=== PATIENT | female | born 2000 | race African-American/Black ===

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

== ENCOUNTER 2019-09-11 09:51 | Emergency (ER) | payer OTHER, MEDICAID ==
[2019-09-11 09:56] VITALS: BP 123/78
[2019-09-11] MEDS ORDERED: NORMAL SALINE 1000 ML 1,000 ML IV ONE (10:23)
[2019-09-11] MEDS ORDERED: METOCLOPRAMIDE HCL INJ/PF 10 MG/2 ML SDV IV ONE (10:24)
--- NOTE | 2019-09-11 10:26 | ER Document Report ---
ED Medical Screen (RME) - General Chief Complaint: Abdominal Pain Stated Complaint: NAUSEA/VOMITING Time Seen by Provider: 09/11/19 10:18 Primary Care Provider: SHERRY DOYLE FNP [Primary Care Provider] - Follow up as needed Notes: Patient is a 19-year-old female who presents emergency department with a chief complaint of nausea, vomiting since Wednesday. Patient reports she does not have any sick contacts and has not had a fever. Denies urinary symptoms. Patient reports her last menstrual cycle was 2 months ago and she was seen at a hospital last Wednesday and was told she was , about 8-10 weeks. Patient reports she has not seen a doctor or received an ultrasound. Patient reports that she is attempted to take Pepto, Tylenol and milk of mag but was unable to keep these down due to the vomiting. Patient reports she is not having diarrhea. Patient reports that her lower abdomen feels "upset." Patient reports she is having increased vaginal discharge with some bright red blood noted. TRAVEL OUTSIDE OF THE [place] IN LAST 30 DAYS: No - Related Data Allergies/Adverse Reactions: No Known Allergies Allergy (Unverified 09/11/19 10:14) Physical Exam - Vital signs Vitals: Temp Pulse Resp BP Pulse Ox 97.9 F 80 16 123/78 100 09/11/19 09:55 09/11/19 09:55 09/11/19 09:55 09/11/19 09:55 09/11/19 09:55 - Abdominal Inspection: Normal Distension: No distension Bowel sounds: Normal Tenderness: Nontender Organomegaly: No organomegaly Course - Re-evaluation Re-evalutation: 09/11/19 10:25 Patient is not tachycardic or hypotensive in triage. No fever noted. Will obtain basic labs. I have greeted and performed a rapid initial assessment of this patient. A comprehensive ED assessment and evaluation of the patient, analysis of test results and completion of the medical decision making process will be conducted by additional ED providers. - Vital Signs Vital signs: Temp Pulse Resp BP Pulse Ox 97.9 F 80 16 123/78 100 09/11/19 09:55 09/11/19 09:55 09/11/19 09:55 09/11/19 09:55 09/11/19 09:55 Doctor's Discharge - Discharge Referrals: DOYLE,SHERRY C, TECHNICAL TRANSLATOR [Primary Care Provider] - Follow up as needed
[2019-09-11 10:50] LABS: APPEARANCE,URINE SLIGHTLY-CLOUDY; BILIRUBIN,URINE NEGATIVE (NEGATIVE); COLOR,URINE YELLOW; GLUCOSE, URINE NEGATIVE (NEGATIVE); KETONES,URINE 80 mg/dL (NEGATIVE); LEUKOCYTE ESTERASE,URINE NEGATIVE (NEGATIVE); NITRITE,URINE NEGATIVE (NEGATIVE); PROTEIN,URINE 30 mg/dL (NEGATIVE); URINE SPECIFIC GRAVITY 1.028; UROBILINOGEN,URINE NEGATIVE mg/dL (<2.0)
--- NOTE | 2019-09-11 11:10 | RADIOLOGY REPORT (SQ) ---
EXAM DESCRIPTION: U/S [id number] TRNABD 1GES W/ODOP COMPLETED DATE/TIME: 09/11/2019 10:54 am REASON FOR STUDY: 8-10 weeks , vag bleeding COMPARISON: None. TECHNIQUE: Transabdominal static and realtime grayscale images acquired of the pelvis. Additional se lected spectral and color Doppler images recorded. All images stored on PACs. bHCG: Not available. CLINICAL DATES: Unknown. LIMITATIONS: None. FINDINGS: FETUS: Single Living intrauterine . ULTRASOUND EGA: 7 week 1 day. ULTRASOUND PHOEBE: 04/28/2020. EFW: Not applicable less than 20 weeks. CRL: 1.03 cm. FHR: 147 beats per minute. SURVEY: No visualized anomalies. AMNIOTIC FLUID: Adequate amount. PLACENTA: Not yet developed due to early gestation. SUBCHORIONIC BLEED: No. SIZE OF BLEED: Not applicable. UTERUS: No masses. No anomalies. CERVICAL LENGTH: 1.4 cm. Closed. RIGHT ADNEXA: Ovary not identified due to poor acoustical window. No adnexal free fluid. No adnexal masses. LEFT ADNEXA: Ovary not identified due to poor acoustical window. No adnexal free fluid. No adnexal masses. FREE FLUID: None. OTHER: No other significant finding. IMPRESSION: LIVING INTRAUTERINE . EGA 7 WEEK 1 DAY. Trimester of : First trimester - 0 to 13 weeks. TECHNICAL DOCUMENTATION: JOB ID: [id number] [employer]- All Rights Reserved Reading location - IP/workstation name: [email or web address]
[2019-09-11 11:24] LABS: ABSOLUTE LYMPHOCYTES (AUTO) 1.9 10^3/uL (0.5-4.7); ABSOLUTE MONOCYTES (AUTO) 0.9 10^3/uL (0.1-1.4); ABSOLUTE NEUT (AUTO) 8.3 10^3/uL (1.7-8.2); BASOPHILS % (AUTO) 0.3 % (0-2); HEMATOCRIT 46.6 % (36.0-47.0); HEMOGLOBIN 15.8 g/dL (12.0-15.5); LYMPHOCYTES % (AUTO) 17.5 % (13-45); MEAN CORPUSCULAR HEMOGLOBIN 28.1 pg (27.0-33.4); MEAN CORPUSCULAR VOLUME 83 fl (80-97); MONOCYTES % (AUTO) 7.7 % (3-13); PLATELET COUNT 293 10^3/uL (150-450); RED BLOOD COUNT 5.62 10^6/uL (3.72-5.28); RED CELL DISTRIBUTION WIDTH 13.6 % (11.5-14.0); SEGMENTED NEUTROPHILS % (AUTO) 74.5 % (42-78); TOTAL CELLS COUNTED % (AUTO) 100 %; WHITE BLOOD COUNT 11.1 10^3/uL (4.0-10.5)
[2019-09-11 11:44] LABS: ALBUMIN 4.7 g/dL (3.5-5.0); ALKALINE PHOSPHATASE 88 U/L (38-126); ANION GAP 18 (5-19); ASPARTATE AMINO TRANSFERASE 51 U/L (14-36); BILIRUBIN,DIRECT 0.2 mg/dL (0.0-0.4); BILIRUBIN,TOTAL 0.9 mg/dL (0.2-1.3); BLOOD UREA NITROGEN 19 mg/dL (7-20); CALCIUM 9.8 mg/dL (8.4-10.2); CARBON DIOXIDE 22 mmol/L (22-30); CHLORIDE 93 mmol/L (98-107); GLUCOSE 72 mg/dL (75-110); POTASSIUM 3.6 mmol/L (3.6-5.0); TOTAL PROTEIN 8.2 g/dL (6.3-8.2)
[2019-09-11 14:04] LABS: BACTERIA (WET MOUNT) 4+ BACTERIA SEEN; EPITHELIALS (WET MOUNT) 3+ EPITHELIALS SEEN; T.VAGINALIS (WET MOUNT) NO TRICHOMONAS SEEN; WBCS (WET MOUNT) 2+ WBCS SEEN; YEAST (WET MOUNT) NO YEAST SEEN
[2019-09-11] MEDS ORDERED: CEFTRIAXONE INJ 250 MG VIAL IM ONE (14:09)
[2019-09-11] MEDS ORDERED: LIDOCAINE 1% INJ-PF (10 MG/ML) 30 ML SDV INJ ONE (14:09)
[2019-09-11] MEDS ORDERED: AZITHROMYCIN 250 MG TABLET PO ONE (14:09)
--- NOTE | 2019-09-11 14:10 | ER Document Report ---
ED GI/ - General Chief Complaint: Abdominal Pain Stated Complaint: NAUSEA/VOMITING Time Seen by Provider: 09/11/19 10:18 Primary Care Provider: [facility] [Provider Group] - Follow up in 1 week SHERRY DOYLE FNP [NURSE PRACTITIONER] - Follow up as needed Notes: Patient is a , 19-year-old female, who is 7 weeks and 1 day who presents to the emergency department with nausea, vomiting, and abdominal pain. Patient states that she is unable to keep anything down prior to coming to the ED. She received fluids and Reglan in triage and states that she feels better. Denies any past medical history. She does not take any medications. TRAVEL OUTSIDE OF THE [place] IN LAST 30 DAYS: No - Related Data Allergies/Adverse Reactions: No Known Allergies Allergy (Unverified 09/11/19 10:14) Past Medical History - Social History Smoking Status: Unknown if Ever Smoked Family History: Reviewed & Not Pertinent Patient has suicidal ideation: No Patient has homicidal ideation: No Review of Systems - Review of Systems Notes: REVIEW OF SYSTEMS: CONSTITUTIONAL : Denies recent illness. Denies recent unintentional weight loss. Denies fever, chills, or sweats. EENT: Denies eye, ear, throat, or mouth pain, discharge, or symptoms. Denies nasal or sinus congestion. CARDIOVASCULAR: Denies chest pain. RESPIRATORY: Denies shortness of breath, cough, congestion, difficulty breathing, or wheezing. GASTROINTESTINAL: See HPI. GENITOURINARY: Denies difficulty urinating, burning, blood in urine, urgency or frequency. FEMALE GENITOURINARY: See HPI. MUSCULOSKELETAL: Denies neck and back pain. Denies joint pain or swelling. SKIN: Denies rash, itchiness, or lesions HEMATOLOGIC : Denies easy bruising or bleeding. LYMPHATIC: Denies swollen, painful, enlarged glands. NEUROLOGICAL: Denies no numbness or tingling denies weakness. Denies headache. Denies altered mental status. Denies alteration in speech. PSYCHIATRIC: Denies stress, anxiety, alteration in sleep patterns, or depression. All other systems reviewed and negative. Physical Exam - Vital signs Vitals: Temp Pulse Resp BP Pulse Ox 97.9 F 80 16 123/78 100 09/11/19 09:55 09/11/19 09:55 09/11/19 09:55 09/11/19 09:55 09/11/19 09:55 - Notes Notes: PHYSICAL EXAMINATION: GENERAL: Appears well, healthy, well-nourished, no acute distress. HEAD: Normocephalic, atraumatic. EYES: PERRL, conjunctiva normal, all extraocular movements intact, sclera nonicteric ENT: Moist mucous membranes. NECK: Supple, no noticeable swelling, redness, rash. Normal range of motion. LUNGS: Equal breath sounds bilaterally and clear to auscultation. No wheezes rales or rhonchi. CARDIOVASCULAR: S1-S2, regular rate, regular rhythm. Radial pulses 2+, normal. ABDOMEN: Normoactive bowel sounds. Soft, nontender, no guarding, no rebound tenderness, and no masses palpated. EXTREMITIES: Normal strength and range of motion, no pitting or edema. No cyanosis. NEUROLOGICAL: Moves all extremities upon command. Strength 5/5 in all extremities. PSYCH: Normal mood, normal affect. SKIN: Warm, dry. No rash, lesions, ulcerations noted. Normal skin turgor. CLERICAL GRADER: Small amount of clear/yellow discharge noted. Course - Re-evaluation Re-evalutation: 09/11/19 14:10 Pelvic exam done with MARAL Estrada at bedside. Patient did have a small amount of discharge noted. No cervical motion tenderness noted. 09/11/19 14:57 Hematology shows a slight leukocytosis of 11,100. No shift noted. Patient's sodium was 133 with a chloride of 93, which she was given IV fluids for. Her glucose was 72 and she was given juice. Patient states that she feels better after receiving her fluids and Reglan. Her beta hCG is 98,780. Urinalysis shows ketones in her urine, which is consistent with her vomiting. Patient has 3+ epithelial cells and 4+ bacteria noted on her wet mount. She also has 2+ WBCs. No trichomonas or yeast noted. Patient will be empirically treated for gonorrhea and chlamydia with azithromycin and Rocephin. She will also be placed on intravaginal Flagyl, as she has a live intrauterine . She will be referred to [facility]. She is in agreement with this plan. Follow-up precautions were given. Verbal discharge instructions were given to the patient. They verbalized understanding. They are stable for discharge. - Vital Signs Vital signs: Temp Pulse Resp BP Pulse Ox 97.9 F 80 16 123/78 100 09/11/19 09:55 09/11/19 09:55 09/11/19 09:55 09/11/19 09:55 09/11/19 09:55 - Laboratory Result Diagrams: 09/11/19 11:05 09/11/19 11:05 Laboratory results interpreted by me: 09/11/19 09/11/19 09/11/19 10:25 11:05 11:05 WBC 11.1 H RBC 5.62 H Hgb 15.8 H Absolute Neuts (auto) 8.3 H Sodium 133.0 L Chloride 93 L Glucose 72 L AST 51 H Beta HCG, Quant 77078.00 H Urine Protein 30 H Urine Ketones 80 H Discharge - Discharge Clinical Impression: Bacterial vaginosis in , Nausea Abdominal pain Qualifiers: Abdominal location: unspecified location Qualified Code(s): R10.9 - Unspecified abdominal pain Condition: Stable Disposition: HOME, SELF-CARE Instructions: Antinausea Medication ([facility]) Additional Instructions: You are being treated for bacterial vaginosis, an overgrowth of normal bacteria in the vagina. You are being sent home on an antibiotic called metronidazole. Take exactly as directed. Never drink alcohol while taking this antibiotic. Please return if you develop abdominal pain, fever greater than 101F, some vomiting, or any other symptoms that are concerning to you. You are also being sent home with nausea medication. You can take this medication as needed for nausea and vomiting. You can also take Tylenol 1000 mg every 6 hours as needed for your abdominal pain. This is safe for . Do not take any ibuprofen while . Prescriptions: Metoclopramide HCl [Reglan] 10 mg PO Q6HP PRN #20 tablet PRN Reason: Metronidazole [Metrogel 0.75% Vaginal Gel] 5 applic VG DAILY #5 tube Referrals: SHERRY DOYLE FNP [NURSE PRACTITIONER] - Follow up as needed [facility] [Provider Group] - Follow up in 1 week
[2019-09-11 15:34] LABS: CHLAM PCR NOT DETECTED (NOT DETECT)
== END 2019-09-11 14:33 | disposition home or self-care (01) ==
LOC: ER 09:51
DX: O23.591 Infection of other part of genital tract in pregnancy, first trimester (principal); B96.89 Other specified bacterial agents as the cause of diseases classified elsewhere; O21.9 Vomiting of pregnancy, unspecified; O26.891 Other specified pregnancy related conditions, first trimester; R10.9 Unspecified abdominal pain; O99.111 Other diseases of the blood and blood-forming organs and certain disorders involving the immune mechanism complicating pregnancy, first trimester; D72.829 Elevated white blood cell count, unspecified; Z3A.01 Less than 8 weeks gestation of pregnancy
CPT/HCPCS: 99284; 96372; 96360; 36415; 87210; 84702; 83690; 85025; 80053; 81001; 87491; 87591; 76801; J3490; J2765; J7030; J0696

== ENCOUNTER 2019-10-01 09:31 | Emergency (ER) | payer OTHER, MEDICAID ==
[2019-10-01] MEDS ORDERED: DIPHENHYDRAMINE HCL 50 MG/ML VIAL IV ONE (09:50)
[2019-10-01] MEDS ORDERED: METOCLOPRAMIDE HCL INJ/PF 10 MG/2 ML SDV IV ONE (09:50)
[2019-10-01] MEDS ORDERED: NORMAL SALINE 1000 ML 1,000 ML IV ONE ×2 (09:50→12:12)
--- NOTE | 2019-10-01 09:51 | ER Document Report ---
ED Medical Screen (RME) - General Chief Complaint: Abdominal Pain Stated Complaint: ABDOMINAL PAIN Time Seen by Provider: 10/01/19 09:47 Mode of Arrival: Ambulatory Information source: Patient Notes: Patient presents 15 weeks G1, P0 with abdominal pain nausea and vomiting. Patient denies any vaginal bleeding. Patient denies any care. I have greeted and performed a rapid initial assessment of this patient. A comprehensive ED assessment and evaluation of the patient, analysis of test results and completion of the medical decision making process will be conducted by additional ED providers. TRAVEL OUTSIDE OF THE [place] IN LAST 30 DAYS: No - Related Data Allergies/Adverse Reactions: No Known Allergies Allergy (Verified 10/01/19 09:35) Past Medical History - Social History Drug Abuse: Marijuana Physical Exam - Vital signs Vitals: Temp Pulse Resp BP Pulse Ox 97.4 F 132 H 20 143/101 H 100 10/01/19 09:38 10/01/19 09:38 10/01/19 09:38 10/01/19 09:38 10/01/19 09:38 - Abdominal Tenderness: Tender - Left lower pelvic tenderness Course - Vital Signs Vital signs: Temp Pulse Resp BP Pulse Ox 97.4 F 132 H 20 143/101 H 100 10/01/19 09:38 10/01/19 09:38 10/01/19 09:38 10/01/19 09:38 10/01/19 09:38
[2019-10-01 10:11] LABS: ABSOLUTE MONOCYTES (AUTO) 0.9 10^3/uL (0.1-1.4); ABSOLUTE NEUT (AUTO) 17.1 10^3/uL (1.7-8.2); BASOPHILS % (AUTO) 0.2 % (0-2); HEMATOCRIT 46.1 % (36.0-47.0); HEMOGLOBIN 15.9 g/dL (12.0-15.5); LYMPHOCYTES % (AUTO) 5.5 % (13-45); MEAN CORPUSCULAR HEMOGLOBIN 28.4 pg (27.0-33.4); MEAN CORPUSCULAR HGB CONC 34.4 g/dL (32.0-36.0); MEAN CORPUSCULAR VOLUME 83 fl (80-97); MONOCYTES % (AUTO) 4.9 % (3-13); PLATELET COUNT 313 10^3/uL (150-450); RED BLOOD COUNT 5.59 10^6/uL (3.72-5.28); RED CELL DISTRIBUTION WIDTH 14.5 % (11.5-14.0); SEGMENTED NEUTROPHILS % (AUTO) 89.4 % (42-78); TOTAL CELLS COUNTED % (AUTO) 100 %; WHITE BLOOD COUNT 19.1 10^3/uL (4.0-10.5)
[2019-10-01 10:26] LABS: ALBUMIN 5.5 g/dL (3.5-5.0); ALKALINE PHOSPHATASE 82 U/L (38-126); ASPARTATE AMINO TRANSFERASE 104 U/L (14-36); BILIRUBIN,DIRECT 0.4 mg/dL (0.0-0.4); BILIRUBIN,TOTAL 1.2 mg/dL (0.2-1.3); BLOOD UREA NITROGEN 19 mg/dL (7-20); CALCIUM 11.6 mg/dL (8.4-10.2); CARBON DIOXIDE 24 mmol/L (22-30); CHLORIDE 90 mmol/L (98-107); GLUCOSE 124 mg/dL (75-110); TOTAL PROTEIN 9.5 g/dL (6.3-8.2)
[2019-10-01 10:31] LABS: ANION GAP 21 (5-19)
[2019-10-01] MEDS ORDERED: ONDANSETRON 4 MG TAB.RAPDIS PO ONE (10:48)
--- NOTE | 2019-10-01 10:54 | ER Document Report ---
ED General - General Chief Complaint: Abdominal Pain Stated Complaint: ABDOMINAL PAIN Time Seen by Provider: 10/01/19 09:47 Mode of Arrival: Ambulatory Notes: 19-year-old G1, P0 female presents with generalized abdominal pain and nausea/vomiting for 3 days. Patient also reports dysuria that started yesterday . Patient denies any fever, chills, diarrhea, constipation. Patient has not received any care yet. Patient denies any vaginal bleeding or discharge. TRAVEL OUTSIDE OF THE [place] IN LAST 30 DAYS: No - Related Data Allergies/Adverse Reactions: No Known Allergies Allergy (Verified 10/01/19 09:35) Past Medical History - General Information source: Patient - Social History Smoking Status: Current Some Day Smoker Drug Abuse: Marijuana Family History: Reviewed & Not Pertinent Patient has suicidal ideation: No Patient has homicidal ideation: No Review of Systems - Review of Systems Notes: Constitutional: Negative for fever. HENT: Negative for sore throat. Eyes: Negative for visual changes. Cardiovascular: Negative for chest pain. Respiratory: Negative for shortness of breath. Gastrointestinal: Positive for abdominal pain, vomiting. Negative for diarrhea. Genitourinary: Positive for dysuria. Negative for vaginal bleeding or discharge. Musculoskeletal: Negative for back pain. Skin: Negative for rash. Neurological: Negative for headaches, weakness or numbness. 10 point ROS negative except as marked above and in HPI. Physical Exam - Vital signs Vitals: Temp Pulse Resp BP Pulse Ox 97.4 F 132 H 20 143/101 H 100 10/01/19 09:38 10/01/19 09:38 10/01/19 09:38 10/01/19 09:38 10/01/19 09:38 - Notes Notes: GENERAL: Well-appearing, well-nourished and in no acute distress. HEAD: Atraumatic, normocephalic. EYES: Extraocular movements intact, sclera anicteric, conjunctiva are normal. NECK: Normal range of motion, supple without lymphadenopathy or JVD. LUNGS: Breath sounds clear to auscultation bilaterally and equal. No wheezes rales or rhonchi. HEART: Regular rate and rhythm without murmurs, rubs or gallops. ABDOMEN: Soft, diffusely tender. No guarding, no rebound. No masses appreciated. EXTREMITIES: Normal range of motion, no pitting or edema. No clubbing or cyanosis. NEUROLOGICAL: Cranial nerves II through XII grossly intact. Normal speech, normal gait. PSYCH: Normal mood, normal affect. SKIN: Warm, Dry, normal turgor, no rashes or lesions noted. Course - Re-evaluation Re-evalutation: 10/01/19 nontoxic, well-appearing 19-year-old female who reports she is 15 weeks presents for abdomen pain, nausea, vomiting for 3 days and dysuria for 1 day. Patient denies any vaginal bleeding or discharge. Patient reports no care yet. Abdomen diffusely tender however no rebound or guarding. Nonsurgical abdomen. PE is otherwise unremarkable. Patient was seen in this ER on 09/11 and had an ultrasound which demonstrated that she was 7-week 1 day with an estimated delivery date of 04/28/2020. Based off this estimated delivery date patient is 10 weeks today. Pelvic exam was deferred. 10/01/19 14:14 US abdomen negative. Pelvic u/s shows IUP at 10 wk 1 day. 10/01/19 15:18 p.o. tolerant. Patient appears clinically improved. Patient states she feels a lot better. Printed out report of ultrasound of abdomen and pelvic ultrasound and given to patient's. Discussed lab work and ultrasound reports at length with patient. Patient has an appointment on Wednesday with HEALTH CENTER MANAGER. Strict return precautions discussed. Patient given prescription for Diclegis. Patient and patient's voiced understanding and agree with plan of care. - Vital Signs Vital signs: Temp Pulse Resp BP Pulse Ox 97.4 F 132 H 20 143/101 H 100 10/01/19 09:38 10/01/19 09:38 10/01/19 09:38 10/01/19 09:38 10/01/19 09:38 - Laboratory Result Diagrams: 10/01/19 09:50 10/01/19 09:50 Laboratory results interpreted by me: 10/01/19 10/01/19 10/01/19 09:50 09:50 09:50 WBC 19.1 H RBC 5.59 H Hgb 15.9 H RDW 14.5 H Lymph % (Auto) 5.5 L Absolute Neuts (auto) 17.1 H Seg Neutrophils % 89.4 H Sodium 135.0 L Chloride 90 L Anion Gap 21 H Glucose 124 H Calcium 11.6 H AST 104 H Total Protein 9.5 H Albumin 5.5 H Beta HCG, Quant 238656.00 H Urine Protein Urine Ketones Urine Urobilinogen 10/01/19 11:41 WBC RBC Hgb RDW Lymph % (Auto) Absolute Neuts (auto) Seg Neutrophils % Sodium Chloride Anion Gap Glucose Calcium AST Total Protein Albumin Beta HCG, Quant Urine Protein 100 H Urine Ketones 20 H Urine Urobilinogen 2.0 H Discharge - Discharge Clinical Impression: Abdominal cramping affecting Nausea & vomiting Qualifiers: Vomiting type: unspecified Vomiting Intractability: unspecified Qualified Code(s): R11.2 - Nausea with vomiting, unspecified Disposition: HOME, SELF-CARE Instructions: Abdominal Pain ([facility]) Additional Instructions: Please take medication as prescribed. Please keep your appointment with your HEALTH CENTER MANAGER on Wednesday. Please return immediately to ER if you start having any worsening symptoms, including pelvic pain, worsening abdominal pain, vaginal bleeding, any urinary symptoms, fever, chest pain, shortness of breath, or any other symptoms that are concerning to you. Prescriptions: Doxylamine Succinate/Vit B6 [Davion Lerma 10-10 mg Tablet] 1 each PO QPM #20 tablet.dr Forms: Return to Work
[2019-10-01 12:11] LABS: APPEARANCE,URINE CLEAR; BILIRUBIN,URINE NEGATIVE (NEGATIVE); COLOR,URINE YELLOW; GLUCOSE, URINE NEGATIVE (NEGATIVE); KETONES,URINE 20 mg/dL (NEGATIVE); LEUKOCYTE ESTERASE,URINE NEGATIVE (NEGATIVE); NITRITE,URINE NEGATIVE (NEGATIVE); PROTEIN,URINE 100 mg/dL (NEGATIVE); URINE SPECIFIC GRAVITY 1.027
--- NOTE | 2019-10-01 12:15 | RADIOLOGY REPORT (SQ) ---
EXAM DESCRIPTION: U/S [id number] TRNABD 1GES W/ODOP COMPLETED DATE/TIME: 10/01/2019 11:50 am REASON FOR STUDY: abd pain, vomiting COMPARISON: Pelvic ultrasound 09/11/2019. TECHNIQUE: Transabdominal static and realtime grayscale images acquired of the pelvis. Additional se lected spectral and color Doppler images recorded. All images stored on PACs. bHCG: Pending. CLINICAL DATES: 10 weeks 0 days LIMITATIONS: None. FINDINGS: FETUS: Single Living intrauterine . ULTRASOUND EGA: 10 weeks 2 days ULTRASOUND PHOEBE: 04/26/2020 EFW: Not applicable less than 20 weeks. CRL: 3.46 cm FHR: 185 beats per minute. SUBCHORIONIC BLEED: None visualized. SIZE OF BLEED: Not applicable. UTERUS: The uterus measures 9.6 x 7.0 x 9.3 cm CERVICAL LENGTH: 3.0 cm , closed. RIGHT ADNEXA: Ovary not identified due to poor acoustical window. No adnexal free fluid. No adnexal masses. LEFT ADNEXA: The left ovary measures 2.5 x 2.2 x 2.2 cm. Small follicles are noted. No adnexal free fluid. No adnexal masses. FREE FLUID: None. IMPRESSION: LIVING INTRAUTERINE . EGA 10 WEEKS 2 DAYS Trimester of : First trimester - 0 to 13 weeks. TECHNICAL DOCUMENTATION: JOB ID: [id number] 2010 [employer]- All Rights Reserved rev-01/28 Reading location - IP/workstation name: [email or web address]
--- NOTE | 2019-10-01 12:20 | RADIOLOGY REPORT (SQ) ---
EXAM DESCRIPTION: U/S ABDOMEN COMPLETE W/DOPPLER COMPLETED DATE/TIME: 10/01/2019 11:50 am REASON FOR STUDY: generalized abd pain, . The patient is 10 weeks 2 days . COMPARISON: None. TECHNIQUE: Dynamic and static grayscale images acquired of the abdomen and recorded on PACS. Additio nal selected color Doppler and spectral images recorded. Note: Study does not meet criteria for complete doppler/duplex scan LIMITATIONS: Acoustical interference from fat or from air in the bowel. FINDINGS: PANCREAS: Mostly obscured by overlying bowel gas. The visualized pancreas in the midline is unremarkable. LIVER: Measures 11.1 cm. Echotexture within normal limits. LIVER VASCULATURE: Normal directional flow of the main portal vein. GALLBLADDER: No stones. Normal wall thickness. No pericholecystic fluid. ULTRASOUND-DETECTED WYMAN'S SIGN: Negative. INTRAHEPATIC DUCTS AND COMMON DUCT: CBD and intrahepatic ducts normal caliber. INFERIOR VENA CAVA: Patent. AORTA: No aneurysm at the visualized segments. RIGHT KIDNEY: Measures 9.7 x 3.8 x 5.3 cm. Normal echogenicity. No hydronephrosis. LEFT KIDNEY: Measures 10.2 x 6.1 x 4.4 cm. Normal echogenicity. No hydronephrosis. SPLEEN: Mostly obscured by overlying bowel gas. The visualized spleen measures approximately 5.6 cm. PERITONEAL AND PLEURAL SPACES: No ascites or effusions. IMPRESSION: No cholelithiasis or biliary ductal dilation. No acute findings. TECHNICAL DOCUMENTATION: JOB ID: [id number] 2010 [employer]- All Rights Reserved Reading location - IP/workstation name: [email or web address]
[2019-10-01 12:34] LABS: URINE AMPHETAMINES SCREEN NEGATIVE; URINE BARBITURATES SCREEN NEGATIVE; URINE BENZODIAZEPINES SCREEN NEGATIVE; URINE COCAINE SCREEN NEGATIVE; URINE MARIJUANA (THC) SCREEN UNCONFIRMED POSITIVE; URINE METHADONE SCREEN NEGATIVE; URINE PHENCYCLIDINE SCREEN NEGATIVE
[2019-10-01] MEDS ORDERED: DICYCLOMINE HCL INJ 20 MG/2 ML AMPULE IM ONE (13:20)
[2019-10-01 15:36] VITALS: BP 149/88
== END 2019-10-01 15:33 | disposition home or self-care (01) ==
LOC: ER 09:31
DX: O21.9 Vomiting of pregnancy, unspecified (principal); O26.891 Other specified pregnancy related conditions, first trimester; R10.84 Generalized abdominal pain; R10.817 Generalized abdominal tenderness; R30.0 Dysuria; O99.331 Smoking (tobacco) complicating pregnancy, first trimester; F17.200 Nicotine dependence, unspecified, uncomplicated; O99.321 Drug use complicating pregnancy, first trimester; F12.10 Cannabis abuse, uncomplicated; Z3A.10 10 weeks gestation of pregnancy
CPT/HCPCS: 99284; 96372; 96361; 96374; 96375; 36415; 84702; 83690; 85025; 80053; 81001; 80307; 76801; 76700; 93976; J0500; J1200; S0119; J2765; J7030